=== PATIENT | male | born 1930 | race Caucasian/White ===

== ENCOUNTER 2016-11-16 08:54 | Day surgery (SDC) | payer OTHER ==
--- NOTE | 2016-11-11 13:11 | HP ---
CC: Dr. Josey Lerner; Dr. Rahel Jones; Dr. Sosa * ADMITTING HISTORY AND PHYSICAL: DATE OF ADMISSION: 11/16/16 ADMITTING DIAGNOSES: 1. Gross hematuria. 2. Right hydronephrosis. 3. History of superficial bladder cancer. PLANNED PROCEDURE: Right retrograde, right ureteroscopy, right stent insertion , and transurethral resection of bladder lesion. SURGEON: Dr. Sosa. ADMITTING HISTORY AND PHYSICAL: Tim Coreas is an 86-year-old gentleman, who has a history of prostate cancer, which was treated with radiation therapy and brachytherapy in 1999. 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 For the last 6 to 8 weeks, he has had episodic gross hematuric and an ultrasound and subsequently a CT scan revealed moderate right hydronephrosis, but no definite etiology noted for the hydronephrosis. A cystoscopy in my office revealed mild enlargement of the prostate with extensive discoloration noted in the prostatic urethra (probably related to brachytherapy). It was difficult to visualize the right orifice because of the possible lesion surrounding the orifice, although this was not well visualized on office cystoscopy under local anesthesia. He is now being brought in for further evaluation and management of a possible bladder tumor on the right side, which may explain the right hydronephrosis. PAST MEDICAL HISTORY: Significant for: 1. Prostate cancer, 1999. 2. Superficial bladder cancer. 3. History of anemia and thrombocytopenia (spherocytosis). MEDICATIONS ON ADMISSION: 1. Atorvastatin 10 mg daily. 2. Aspirin 81 mg, which he is not currently taking. 3. Myrbetriq 50 mg a day. ALLERGIES: No known drug allergies. REVIEW OF SYSTEMS: He denies any chest pain or shortness of breath. 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 PHYSICAL EXAMINATION GENERAL: Reveals a pleasant, healthy-appearing, elderly gentleman. VITAL SIGNS: Blood pressure is 134/82, pulse 78 per minute, oxygen saturation 94% on room air. LUNGS: Clear bilaterally. CARDIOVASCULAR: S1, S2. ABDOMEN: Soft with mild right flank tenderness. IMPRESSION: An 86-year-old gentleman with episodic gross hematuria, right hydronephrosis, and possible bladder lesion on the right side. PLAN: Plan is for cystoscopy, right retrograde, right stent insertion, possible ureteroscopy, and transurethral resection of bladder lesion if identified. [id number]/[facility] #: [id number] [facility]
[~2016-11-16 08:54] MED LIST: Buffered Lidocaine 0.9% SYRIN* 5 ML/SYR SYRINGE INTRADERM ONE; Dexamethasone IV* 4 MG/ML 1 ML (4 MG) IV SLOW PU ONE; Famotidine IV* 10 MG/ML 2 ML (20 mg) IV ONE
[2016-11-16] MEDS ORDERED: Dexamethasone IV* 4 MG/ML 1 ML (4 MG) ONE (09:14)
[2016-11-16] MEDS ORDERED: Famotidine IV* 10 MG/ML 2 ML (20 mg) ONE (09:15)
[2016-11-16] MEDS ORDERED: Buffered Lidocaine 0.9% SYRIN* 5 ML/SYR SYRINGE ONE (09:15)
[2016-11-16] MEDS ORDERED: cefTRIAXone(*) 2 GM ADDV.VIAL IVPB ONE (09:20)
[2016-11-16] MEDS ORDERED: Iohexol 180 (CONTRAST) 10 ML SDV IV ONE (10:07)
[2016-11-16] MEDS ORDERED: fentaNYL* 50 MCG/ML 2 ML VIAL (100 MCG VIAL) ONE (10:09)
[2016-11-16] MEDS ORDERED: Midazolam* 1 MG/ML 2 ML VIAL (2 MG) ONE (10:09)
[2016-11-16] MEDS ORDERED: Phenylephrine INJ* 10 MG/ML 1 ML VIAL (10 MG) ONE (10:16)
[2016-11-16] MEDS ORDERED: Ondansetron INJ* 2 MG/ML VIAL ONE (11:24)
[2016-11-16] MEDS ORDERED: Ketorolac INJ* 30 MG/ML 1 ML VIAL ONE (11:24)
[2016-11-16] MEDS ORDERED: DiMENhydriNATE IV* 50 MG/ML VIAL IV PUSH PRN (12:09)
[2016-11-16] MEDS ORDERED: fentaNYL* 50 MCG/ML 2 ML VIAL (100 MCG VIAL) IV PRN (12:09)
[2016-11-16] MEDS ORDERED: Lidocaine 2% JELLY* 6 ML JELLY TOPICAL ONE (12:36)
--- NOTE | 2016-11-16 12:48 | RAD ---
INDICATION: Cystogram, RIGHT retrograde pyelogram, balloon dilatation, stent insertion. Prostate cancer with seed implants. COMPARISON: November 09, 2016 CT. TECHNIQUE: 22 seconds fluoroscopy. FINDINGS: RIGHT retrograde pyelogram documents severe hydroureteronephrosis. Distal ureteral balloon dilatation documented. RIGHT ureteral stent placed with visualized mild partial decompression of the collecting system. IMPRESSION: Procedural fluoroscopy. CPT II Codes: 6045F
[2016-11-16 13:46] VITALS: BP 148/60
--- NOTE | 2016-11-17 03:30 | OP ---
CC: Josey Lerner MD; Gunner Poe MD, [facility], [address] [place] [address], [place], [place]; Dr. Rahel Jones * DATE OF OPERATION: 11/16/16 - [facility] DATE OF : 32 SURGEON: Noel Sosa MD ANESTHESIOLOGIST: Dr. Vega. ANESTHESIA: General. PRE-OP DIAGNOSES: 1. Right hydronephrosis. 2. Urethral stricture. POST-OP DIAGNOSES: 1. Right hydronephrosis. 2. Urethral stricture. 3. Stricture, right ureter. OPERATIVE PROCEDURE: Cystoscopy, right retrograde pyelogram, right ureteroscopy , right ureteral balloon dilatation, and right stent insertion. COMPLICATIONS: None. STENT USED: 7-[place] stent, 28-cm silicone stent, right ureter. OPERATIVE FINDINGS: 1. Stricture, proximal bulbar and membranous urethra (status post brachytherapy ). 2. No evidence of bladder tumor. 3. Right hydronephrosis and right hydroureter secondary to stricture, right distal ureter (possibly related to radiation). SPECIMEN: Washings for cytology from right ureter. POSTOPERATIVE CONDITION: Stable. INDICATION: Tim Coreas is an 86-year-old gentleman with a history of prostate cancer, treated with brachytherapy. He had been evaluated and treated by me several years ago for superficial bladder cancer on the left side with no recurrences. He was recently noted to have right hydronephrosis with no obvious cause identified on CT urogram. DESCRIPTION OF PROCEDURE: After induction of general anesthesia, the patient was placed in dorsal lithotomy position. Sequential compression devices were in place and functioning. Initial cystoscopy revealed a normal distal urethra. In the proximal bulbar and membranous urethra, there was a moderate stricture noted with blanching and discoloration of the mucosa secondary to radiation effect. The bladder was examined. A small scar was noted in the posterior wall on the left side of the site of previous transurethral resection. There was no recurrent tumor noted within the bladder. The right orifice was identified. I could see a small amount of blood at the right orifice and orifice itself appeared slightly stenotic. A guidewire was introduced on the right side. Right retrograde pyelogram revealed moderate right hydronephrosis with a significantly dilated tortuous right ureter. No filling defects were noted. A 6-[place] semi-rigid ureteroscope was introduced and advanced into the right ureter, which was fairly narrow. The last 3 or 4 cm of the ureter were involved with a stricture and I did not visualize any tumor within the ureter. There was one area on the right side, which I had initially thought may have represented a low-grade transitional neoplasm; but on further evaluation, I think this was tissue that had sloughed off after the initial dilatation of the ureter to facilitate insertion of the ureteroscope. The ureteroscope was advanced to the level of the mid right ureter and after the initial 4-5 cm, the mucosa was of more normal color and other than being dilated appeared unremarkable. Washings were obtained from the right ureter and sent for cytology. Next, balloon dilation of the distal right ureter was successfully carried out under fluoroscopic monitoring. Once this was done, a 7-[place] 28-cm silicone stent was introduced and positioned under fluoroscopy with good proximal and distal positioning obtained. A 22-[place] Sapp was placed for bladder drainage. The patient tolerated the procedure satisfactorily and was transferred back to the recovery area in stable condition. [id number]/[facility] #: [id number] [facility]
== END 2016-11-16 14:10 | disposition home or self-care (01) ==
LOC: OR 08:54
PROVIDERS: ATTEND Urology
DX: N13.1 Hydronephrosis with ureteral stricture, not elsewhere classified (principal); N99.112 Postprocedural membranous urethral stricture, male; N99.111 Postprocedural bulbous urethral stricture, male; Z85.46 Personal history of malignant neoplasm of prostate; Z85.51 Personal history of malignant neoplasm of bladder; Z96.0 Presence of urogenital implants; Z79.82 Long term (current) use of aspirin; R31.0 Gross hematuria
CPT/HCPCS: 74420; 88112; C1876; J0696; J1100; J1580; J1885; J2250; J2405; J3010